=== PATIENT | male | born 1945 | race African-American/Black ===

== ENCOUNTER 2017-10-24 13:27 | Inpatient (IN) | payer MEDICARE, MEDICAID ==
[~2017-10-24] VITALS: Ht 193 cm; Wt 60.8 kg
[~2017-10-24 13:27] MED LIST: ACETAMINOPHEN-1 EAC1 ORAL; BACTRIM-DS1 EA PO; COLACE100 MG PO; FLOMAX0.4 MG PO; IBUPROFEN800 MG ORAL; LOPRESSOR50 MG PO; PROSCAR5 MG PO; PROTONIX40 MG PO; UNK MEDS; [UNRECOGNIZED DRUG - REMARK] PO; [UNRECOGNIZED DRUG - REMARK] PO
[2017-10-24 13:50] VITALS: BP 116/78
[2017-10-24] MEDS ORDERED: Sodium Chloride 500ML 500 ML IV ONE (14:00)
[2017-10-24] MEDS ORDERED: cefTRIAXone 1 GM in NS 55 ML IVPB ONE (14:00)
--- NOTE | 2017-10-24 14:21 | Emergency Room Report ---
History of Present Illness General Chief Complaint: General Complaint Source: Patient Present Illness HPI Patient presents with complaints of increased redness to both of his feet Along with pain to the right knee patient has a history of left-sided knee arthritis Patient reports the redness started today denies any fevers However he does feel weak and did have a fall yesterday Denies any focal pain is ankle or upper extremity Allergies: Coded Allergies: No Known Allergies (Unverified , 09/10/11) Patient History Past Medical History: see triage record Pertinent Family History: none Reviewed Nursing Documentation: PMH: Agreed; PSxH: Agreed Nursing Documentation-PMH Past Medical History: No History, Except For Hx Hypertension: Yes Hx Pacemaker: No Hx Asthma: No Hx COPD: No Hx Diabetes: No Hx Cancer: No Hx Gastrointestinal Problems: Yes - GERD Hx Dialysis: No History Of Psychiatric Problem: No Hx Neurological Problems: No Hx Cerebrovascular Accident: No Hx Seizures: No Review of Systems All Other Systems: negative except mentioned in HPI Physical Exam Vital Signs Date Time Temp Pulse Resp B/P (MAP) Pulse Ox O2 Delivery O2 Flow Rate FiO2 10/24/17 13:50 97.4 83 16 125/63 96 Room Air 97.3 Sp02 EP Interpretation: reviewed, normal General Appearance: no apparent distress Head: normocephalic, atraumatic Eyes: bilateral eye PERRL, bilateral eye EOMI ENT: hearing grossly normal, normal pharynx, TMs + canals normal, uvula midline Neck: full range of motion, supple, no meningismus, no bony tend Respiratory: lungs clear, normal breath sounds, no rhonchi, no respiratory distress, no retraction, no accessory muscle use Cardiovascular #1: normal peripheral pulses, regular rate, rhythm, no gallop, no JVD, no murmur Gastrointestinal: normal bowel sounds, non tender, soft, no mass, no organomegaly, non-distended, no guarding, no hernia, no pulsatile mass, no rebound Genitourinary: no CVA tenderness Musculoskeletal: other - Swelling and erythema to bilateral feet, right ankle also appears mildly edematous, no obvious open wounds Neurologic: oriented x3, responsive, heel emery buffer III-XII nml as tested, sensory intact Psychiatric: mood/affect normal Skin: other - As above with cellulitic changes both legs Lymphatic: normal inspection, no adenopathy Medical Decision Making Diagnostic Impression: Primary Impression: cellulilitis of feet Additional Impression: Leg swelling ER Course Given the patient's presentation and history patient is complex requiring blood work and imaging Patient's total CK is elevated showing signs of dehydration lactic acid was also elevated Patient provided with further hydration and antibiotics Infectious disease consultation made and patient admitted for further care Labs Test 10/24/17 07:52 10/24/17 15:34 10/24/17 17:00 10/25/17 07:50 Erythrocyte Sedimentation Rate 3 MM/HR (0-20) White Blood Count 4.6 K/UL (4.8-10.8) Red Blood Count 4.29 M/UL (4.70-6.10) Hemoglobin 13.2 G/DL (14.2-18.0) Hematocrit 39.7 % (42.0-52.0) Mean Corpuscular Volume 92 FL (80-99) Mean Corpuscular Hemoglobin 30.8 PG (27.0-31.0) Mean Corpuscular Hemoglobin Concent 33.3 G/DL (32.0-36.0) Red Cell Distribution Width 12.8 % (11.6-14.8) Platelet Count 294 K/UL (150-450) Mean Platelet Volume 5.4 FL (6.5-10.1) Neutrophils (%) (Auto) 60.1 % (45.0-75.0) Lymphocytes (%) (Auto) 26.1 % (20.0-45.0) Monocytes (%) (Auto) 8.7 % (1.0-10.0) Eosinophils (%) (Auto) 3.6 % (0.0-3.0) Basophils (%) (Auto) 1.5 % (0.0-2.0) Sodium Level 142 MMOL/L (136-145) Potassium Level 3.8 MMOL/L (3.5-5.1) Chloride Level 108 MMOL/L (98-107) Carbon Dioxide Level 24 MMOL/L (21-32) Anion Gap 10 mmol/L (5-15) Blood Urea Nitrogen 15 mg/dL (7-18) Creatinine 1.0 MG/DL (0.55-1.30) Estimat Glomerular Filtration Rate mL/min (>60) Glucose Level 65 MG/DL (74-106) Lactic Acid Level 2.90 mmol/L (0.66-2.22) 2.00 mmol/L (0.66-2.22) Calcium Level 9.3 MG/DL (8.5-10.1) Total Bilirubin 0.4 MG/DL (0.2-1.0) Aspartate Amino Transf (AST/SGOT) 38 U/L (15-37) Alanine Aminotransferase (ALT/SGPT) 56 U/L (12-78) Alkaline Phosphatase 88 U/L (46-116) Total Creatine Kinase 657 U/L (26-308) 584 U/L (26-308) Creatine Kinase MB 15.2 NG/ML (0.0-3.6) Creatine Kinase MB Relative Index 2.3 Troponin I 0.000 ng/mL (0.000-0.056) Pro-B-Type Natriuretic Peptide 103 pg/mL (0-125) Total Protein 8.2 G/DL (6.4-8.2) Albumin 3.7 G/DL (3.4-5.0) Globulin 4.5 g/dL Albumin/Globulin Ratio 0.8 (1.0-2.7) Test 10/25/17 07:52 White Blood Count 4.6 K/UL (4.8-10.8) Red Blood Count 4.58 M/UL (4.70-6.10) Hemoglobin 15.2 G/DL (14.2-18.0) Hematocrit 42.2 % (42.0-52.0) Mean Corpuscular Volume 92 FL (80-99) Mean Corpuscular Hemoglobin 33.1 PG (27.0-31.0) Mean Corpuscular Hemoglobin Concent 35.9 G/DL (32.0-36.0) Red Cell Distribution Width 12.4 % (11.6-14.8) Platelet Count 237 K/UL (150-450) Mean Platelet Volume 5.3 FL (6.5-10.1) Neutrophils (%) (Auto) 69.7 % (45.0-75.0) Lymphocytes (%) (Auto) 18.5 % (20.0-45.0) Monocytes (%) (Auto) 5.4 % (1.0-10.0) Eosinophils (%) (Auto) 4.8 % (0.0-3.0) Basophils (%) (Auto) 1.6 % (0.0-2.0) Sodium Level 140 MMOL/L (136-145) Potassium Level 4.3 MMOL/L (3.5-5.1) Chloride Level 104 MMOL/L (98-107) Carbon Dioxide Level 24 MMOL/L (21-32) Anion Gap 12 mmol/L (5-15) Blood Urea Nitrogen 8 mg/dL (7-18) Creatinine 0.7 MG/DL (0.55-1.30) Estimat Glomerular Filtration Rate mL/min (>60) Glucose Level 118 MG/DL (74-106) Uric Acid 3.3 MG/DL (2.6-7.2) Calcium Level 9.0 MG/DL (8.5-10.1) Troponin I 0.000 ng/mL (0.000-0.056) Pro-B-Type Natriuretic Peptide 192 pg/mL (0-125) Triglycerides Level 46 MG/DL (30-150) Cholesterol Level 146 MG/DL (< 200) LDL Cholesterol 79 mg/dL (<100) HDL Cholesterol 61 MG/DL (40-60) Cholesterol/HDL Ratio 2.4 (3.3-4.4) Rhythm Strip Diag. Results EP Interpretation: yes Rate: 77 Rhythm: NSR, no PVC's, no ectopy Chest X-Ray Diagnostic Results Chest X-Ray Diagnostic Results : Chest X-Ray Ordered: Yes # of Views/Limited/Complete: 1 View Indication: Chest Pain EP Interpretation: Yes Interpretation: no consolidation, no effusion, no pneumothorax, no acute cardiopulmonary disease Impression: No acute disease Electronically Signed by: Stacey So DO Other X-Ray Diagnostic Results Other X-Ray Diagnostic Results #1: X-Ray ordered: Right foot # of Views/Limited Vs Complete: 2 View Indication: Pain EP Interpretation: Yes Interpretation: no dislocation, no soft tissue swelling, no fractures Impression: No acute disease Electronically Signed by: Stacey So DO Other X-Ray Diagnostic Results #2: X-Ray ordered: Right ankle # of Views/Limited Vs Complete: 2 View Indication: Pain EP Interpretation: Yes Interpretation: no dislocation, no soft tissue swelling, no fractures Impression: No acute disease Electronically Signed by: Stacey So DO Other X-Ray Diagnostic Results #3: X-Ray ordered: Left foot # of Views/Limited Vs Complete: 2 View Indication: Pain EP Interpretation: Yes Interpretation: no dislocation, no soft tissue swelling, no fractures Impression: No acute disease Electronically Signed by: Stacey So DO Other X-Ray Diagnostic Results #4: X-Ray ordered: Left ankle # of Views/Limited Vs Complete: 2 View Indication: Pain EP Interpretation: Yes Interpretation: no dislocation, no soft tissue swelling, no fractures Impression: No acute disease Electronically Signed by: Stacey So DO Last Vital Signs Date Time Temp Pulse Resp B/P (MAP) Pulse Ox O2 Delivery O2 Flow Rate FiO2 10/24/17 13:50 97.4 83 16 125/63 96 Room Air 97.3 Status: improved Disposition: ADMITTED INPATIENT Condition: Serious Stacey So DO October 24, 2017 14:21
[2017-10-24 16:15] LABS: BASOPHILS % (AUTO) 1.5 % (0.0-2.0); EOSINOPHILS % (AUTO) 3.6 % (0.0-3.0); HEMATOCRIT 39.7 % (42.0-52.0); HEMOGLOBIN 13.2 G/DL (14.2-18.0); LYMPHOCYTES % (AUTO) 26.1 % (20.0-45.0); MEAN CORPUSCULAR VOLUME 92 FL (80-99); MONOCYTES % (AUTO) 8.7 % (1.0-10.0); NEUTROPHILS % (AUTO) 60.1 % (45.0-75.0); PLATELET COUNT 294 K/UL (150-450); RED BLOOD COUNT 4.29 M/UL (4.70-6.10); RED CELL DISTRIBUTION WIDTH 12.8 % (11.6-14.8); WHITE BLOOD COUNT 4.6 K/UL (4.8-10.8)
[2017-10-24 16:28] LABS: ANION GAP 10 mmol/L (5-15); BLOOD UREA NITROGEN 15 mg/dL (7-18); CALCIUM 9.3 MG/DL (8.5-10.1); CARBON DIOXIDE 24 MMOL/L (21-32); CHLORIDE 108 MMOL/L (98-107); POTASSIUM 3.8 MMOL/L (3.5-5.1); SODIUM 142 MMOL/L (136-145)
--- NOTE | 2017-10-24 16:28 | Cardiac Electrophysiology PN ---
Subjective Subjective Pt seen in ER. Cardiology consult dictated and DW Dr Mora [id number] Objective Last 24 Hour Vital Signs Date Time Temp Pulse Resp B/P (MAP) Pulse Ox O2 Delivery O2 Flow Rate FiO2 10/24/17 13:50 97.4 83 16 125/63 96 Room Air 97.3 Laboratory Tests Test 10/24/17 15:34 White Blood Count 4.6 K/UL (4.8-10.8) L Red Blood Count 4.29 M/UL (4.70-6.10) L Hemoglobin 13.2 G/DL (14.2-18.0) L Hematocrit 39.7 % (42.0-52.0) L Mean Corpuscular Volume 92 FL (80-99) Mean Corpuscular Hemoglobin 30.8 PG (27.0-31.0) Mean Corpuscular Hemoglobin Concent 33.3 G/DL (32.0-36.0) Red Cell Distribution Width 12.8 % (11.6-14.8) Platelet Count 294 K/UL (150-450) Mean Platelet Volume 5.4 FL (6.5-10.1) L Neutrophils (%) (Auto) 60.1 % (45.0-75.0) Lymphocytes (%) (Auto) 26.1 % (20.0-45.0) Monocytes (%) (Auto) 8.7 % (1.0-10.0) Eosinophils (%) (Auto) 3.6 % (0.0-3.0) H Basophils (%) (Auto) 1.5 % (0.0-2.0) Sodium Level Pending Potassium Level Pending Chloride Level Pending Carbon Dioxide Level Pending Blood Urea Nitrogen Pending Creatinine Pending Estimat Glomerular Filtration Rate Pending Glucose Level Pending Lactic Acid Level Pending Calcium Level Pending Total Bilirubin Pending Aspartate Amino Transf (AST/SGOT) Pending Alanine Aminotransferase (ALT/SGPT) Pending Alkaline Phosphatase Pending Total Creatine Kinase Pending Creatine Kinase MB Pending Troponin I Pending Pro-B-Type Natriuretic Peptide Pending Total Protein Pending Albumin Pending Globulin Pending Morteza Warner MD October 24, 2017 16:28
[2017-10-24 16:45] LABS: ALANINE AMINOTRANSFERASE 56 U/L (12-78); ALBUMIN 3.7 G/DL (3.4-5.0); ALBUMIN/GLOBULIN RATIO 0.8 (1.0-2.7); ALKALINE PHOSPHATASE 88 U/L (46-116); ASPARTATE AMINO TRANSFERASE 38 U/L (15-37); BILIRUBIN,TOTAL 0.4 MG/DL (0.2-1.0); CKMB 15.2 NG/ML (0.0-3.6); CREATINE KINASE 657 U/L (26-308)
--- NOTE | 2017-10-24 17:34 | Infectious Diseases Prog Note ---
Assessment/Plan Problems: (1) Cellulitis and abscess of lower extremity Assessment & Plan: will start vancomycin and cefazolin empirically , pending blood culture, keep legs elevated all the time when in bed (2) Leg swelling Assessment & Plan: rule out DVT, will order venous doppler and start antibiotics Subjective Allergies: Coded Allergies: No Known Allergies (Unverified , 09/10/11) Objective Vital Signs Last 24 Hour Vital Signs Date Time Temp Pulse Resp B/P (MAP) Pulse Ox O2 Delivery O2 Flow Rate FiO2 10/24/17 13:50 97.4 83 16 125/63 96 Room Air 97.3 10/24/17 13:50 98.4 84 14 116/78 98 Room Air 98.4 Height (Feet): 6 Height (Inches): 4.00 Weight (Pounds): 170 Laboratory Tests Test 10/24/17 15:34 10/24/17 17:00 White Blood Count 4.6 K/UL (4.8-10.8) L Red Blood Count 4.29 M/UL (4.70-6.10) L Hemoglobin 13.2 G/DL (14.2-18.0) L Hematocrit 39.7 % (42.0-52.0) L Mean Corpuscular Volume 92 FL (80-99) Mean Corpuscular Hemoglobin 30.8 PG (27.0-31.0) Mean Corpuscular Hemoglobin Concent 33.3 G/DL (32.0-36.0) Red Cell Distribution Width 12.8 % (11.6-14.8) Platelet Count 294 K/UL (150-450) Mean Platelet Volume 5.4 FL (6.5-10.1) L Neutrophils (%) (Auto) 60.1 % (45.0-75.0) Lymphocytes (%) (Auto) 26.1 % (20.0-45.0) Monocytes (%) (Auto) 8.7 % (1.0-10.0) Eosinophils (%) (Auto) 3.6 % (0.0-3.0) H Basophils (%) (Auto) 1.5 % (0.0-2.0) Sodium Level 142 MMOL/L (136-145) Potassium Level 3.8 MMOL/L (3.5-5.1) Chloride Level 108 MMOL/L (98-107) H Carbon Dioxide Level 24 MMOL/L (21-32) Anion Gap 10 mmol/L (5-15) Blood Urea Nitrogen 15 mg/dL (7-18) Creatinine 1.0 MG/DL (0.55-1.30) Estimat Glomerular Filtration Rate mL/min (>60) Glucose Level 65 MG/DL (74-106) L Lactic Acid Level 2.90 mmol/L (0.66-2.22) H Pending Calcium Level 9.3 MG/DL (8.5-10.1) Total Bilirubin 0.4 MG/DL (0.2-1.0) Aspartate Amino Transf (AST/SGOT) 38 U/L (15-37) H Alanine Aminotransferase (ALT/SGPT) 56 U/L (12-78) Alkaline Phosphatase 88 U/L (46-116) Total Creatine Kinase 657 U/L (26-308) H Creatine Kinase MB 15.2 NG/ML (0.0-3.6) H Creatine Kinase MB Relative Index 2.3 Troponin I 0.000 ng/mL (0.000-0.056) Pro-B-Type Natriuretic Peptide 103 pg/mL (0-125) Total Protein 8.2 G/DL (6.4-8.2) Albumin 3.7 G/DL (3.4-5.0) Globulin 4.5 g/dL Albumin/Globulin Ratio 0.8 (1.0-2.7) L Current Medications Medications (Trade) Dose Ordered Sig/Nicole Route PRN Reason Start Time Stop Time Status Last Admin Dose Admin Acetaminophen (Tylenol) 650 mg Q4H PRN ORAL Mild Pain (Pain Scale 1-3) 10/24/17 17:15 11/23/17 17:14 Dextrose (Dextrose 50%) 25 ml STAT PRN IV Hypoglycemia 10/24/17 17:15 11/23/17 17:14 Dextrose (Dextrose 50%) 50 ml STAT PRN IV Hypoglycemia 10/24/17 17:15 11/23/17 17:14 Diphenhydramine HCl (Benadryl) 25 mg Q6H PRN ORAL Itching/Pruritis 10/24/17 17:15 11/23/17 17:14 Docusate Sodium (Colace) 100 mg EVERY 12 HOURS ORAL 10/24/17 21:00 11/23/17 20:59 Famotidine (Pepcid) 40 mg DAILY ORAL 10/25/17 09:00 11/24/17 08:59 Heparin Sodium (Porcine) (Heparin 5000 units/ml) 5,000 units EVERY 8 HOURS SUBQ 10/24/17 22:00 11/23/17 21:59 Sodium Chloride 1,000 ml @ 75 mls/hr [id number] IV 10/24/17 17:30 11/23/17 17:29 Tamsulosin HCl (Flomax) 0.4 mg BEDTIME ORAL 10/24/17 21:00 11/23/17 20:59 Ayaz Mora M.D. October 24, 2017 17:34
--- NOTE | 2017-10-24 17:44 | Diagnostic Imaging Report ---
Indication: Dyspnea Technique: XRAY Chest 1v Comparison: 08/24/2012 Findings: Heart size and mediastinal contours are within normal limits and stable compared to the prior exam. Lungs are hyperinflated. There is no focal airspace consolidation, pleural effusion or pneumothorax. There is an unchanged calcified granuloma in the left lung and calcified mediastinal lymph node. No acute osseous abnormality is seen. Impression: Unchanged findings suggestive of COPD. No focal airspace consolidation, pleural effusion or pneumothorax. Evidence of prior granulomatous disease.
--- NOTE | 2017-10-24 17:48 | Diagnostic Imaging Report ---
Indication: Pain Technique: XRAY Ankle 2v -right Comparison: None Findings: There is bimalleolar soft tissue swelling. There is no definite/displaced acute fracture. Ankle mortise is intact on these nonstress views. There is a well-circumscribed ossific density projecting just inferior to the tip of the fibula which may represent sequela of remote trauma or an accessory ossicle. No radiopaque foreign body seen. Imaged hindfoot grossly unremarkable. There is a likely small os perineum. Impression: Bimalleolar soft tissue swelling. No evidence of acute fracture. Ankle mortise intact.
--- NOTE | 2017-10-24 17:51 | Diagnostic Imaging Report ---
Indication: Pain Technique: XRAY Foot 2v R Comparison: No prior right foot radiographs available for comparison. Findings: There is bimalleolar soft tissue swelling. There is no evidence of acute fracture. No focal osteopenia, periostitis or bony erosion. Lisfranc alignment of the foot is preserved. There are probable hammertoe deformities of the second through fifth digits. No radiopaque foreign body seen. Impression: Mild bimalleolar soft tissue swelling. No acute fracture or dislocation.
--- NOTE | 2017-10-24 17:52 | Diagnostic Imaging Report ---
Indication: Pain Technique: XRAY Foot 2v L Comparison: None Findings: There is no evidence of acute fracture or dislocation. There are hammertoe deformities of the second through fifth digits. There is mild soft tissue swelling about the ankle. No radiopaque foreign body identified. Impression: Mild soft tissue swelling about the medial ankle. No evidence of acute fracture or dislocation.
--- NOTE | 2017-10-24 17:54 | Diagnostic Imaging Report ---
Indication: Pain Technique: XRAY Ankle 2v L Comparison: None Findings: There is mild soft tissue swelling about the medial malleolus. There is no evidence of acute fracture. Ankle mortise is intact on this nonstress view. Imaged hindfoot grossly unremarkable. No radiopaque foreign body seen. No plain film evidence to suggest acute osteomyelitis. Impression: Mild soft tissue swelling about the medial malleolus. No evidence of acute fracture or dislocation.
[2017-10-24 18:51] VITALS: BP 160/77
[2017-10-24] MEDS ORDERED: Vancomycin 1250mg/D5W 250ml IVPB ONE (20:00)
[2017-10-24] MEDS: Tamsulosin 0.4mg cap ORAL SCH (21:25)
[2017-10-24] MEDS: Docusate 100mg cap ORAL SCH (21:25)
[2017-10-24] MEDS: Heparin 5000 units/ml inj SUBQ SCH (21:39)
--- NOTE | 2017-10-24 23:00 | Consultation ---
DATE OF CONSULTATION: 10/24/2017 CARDIOLOGY CONSULTATION CONSULTING PHYSICIAN: Morteza Warner M.D. REFERRING PHYSICIAN: Haroon Ceja M.D. REASON FOR CONSULTATION: Hypertension and lower extremity edema. HISTORY OF PRESENT ILLNESS: The patient is a 72-year-old gentleman with no major past medical history except for hypertension, history of gastroesophageal reflux disease, as well as history of alcohol and tobacco use more than 20 years ago, but he stopped of them. The patient came to the emergency room with the bilateral swelling in his feet, right more than left, as well as redness. The patient also has history of arthritis. The patient denies any chest pain, palpitation, or shortness of breath and he feels weak and did have fall yesterday. The patient was admitted and a Cardiology consultation was obtained for further evaluation and management. In the emergency room, blood pressure was 125/62 with a pulse of 82 and respirations of 18. REVIEW OF SYSTEMS: Review of Systems was performed and was negative other than what was mentioned in the history of present illness. PAST MEDICAL HISTORY: 1. Hypertension. 2. Rheumatoid arthritis. FAMILY HISTORY: Noncontributory. SOCIAL HISTORY: He has history of smoking and drinking, but that was more than 20 years ago. PHYSICAL EXAMINATION: VITAL SIGNS: Blood pressure is 125/62, pulse 83, respirations 18, and temperature 97.3. HEENT: Head and neck showed no JVD. LUNGS: Clear. CARDIOVASCULAR: Regular S1 and S2 with no gallop or murmur. ABDOMEN: Soft. EXTREMITIES: Bilateral pitting edema with the right much worse than the left as well as cellulitis and erythema of right leg. LABORATORY AND DIAGNOSTIC DATA: EKG showed normal sinus rhythm with right atrial enlargement, borderline EKG. Labs, white count of 4.6, hemoglobin 13.2, hematocrit 39.7, and platelet count 294. The rest of the chemistry is pending. ASSESSMENT AND PLAN: 1. Bilateral lower extremity edema, mostly on the right. We will get lower extremity Doppler and get an echocardiogram to evaluate for ejection fraction and wall motion abnormality. In the meantime, we will put the patient on Lasix. 2. History of arthritis. 3. History of hypertension. Blood pressure currently stable. Keep the patient off antihypertensives. We will just add p.r.n. clonidine. 4. History of cellulitis, started on ceftriaxone. Thank you very much, Dr. Ceja, for allowing me to participate in the care of this patient. Please do not hesitate to contact me for any questions regarding my evaluation. Morteza Warner M.D. DR: Betty JOB#: [id number] CC:
[2017-10-24] MEDS: ceFAZolin sod 1 GM in D5W 55 ML IVPB SCH (23:17)
[2017-10-25] VITALS: BP 136/71
--- NOTE | 2017-10-25 01:00 | Consultation ---
DATE OF CONSULTATION: 10/24/2017 INFECTIOUS DISEASES CONSULTATION CONSULTING PHYSICIAN: Ayaz Mora M.D. REQUESTING PHYSICIAN: Haroon Ceja M.D. REASON FOR CONSULTATION: Bilateral lower extremity cellulitis and recommendation for antibiotics treatment HISTORY OF PRESENT ILLNESS: The patient is a 72-year-old male with past medical history of hypertension and GERD, presented to [facility] with chief complaint of redness and swelling of both feet and lower extremities. He also has pain on the right knee, but no significant swelling. The patient had history of left side knee arthritis. His redness started over the last couple of days, does not recall any wound, injury or fall or trauma to his legs and he never had any previous cellulitis. He denied any focal pain or numbness. The patient had temperature of 97.4 in the emergency room. White count of 4.6. He was started on vancomycin and ceftriaxone empirically and Infectious Diseases consultation was requested for antibiotics treatment and further management. As of note, the patient had an significant onychomycosis on both feet, which he never treated before in the past. REVIEW OF SYSTEMS: A 14-point of system reviewed were all negative apart from the one I mentioned above in my History and Physical. PAST MEDICAL HISTORY: Significant for hypertension and GERD. PAST SURGICAL HISTORY: Negative. MEDICATIONS: He received vancomycin and ceftriaxone in the emergency room. For the rest of his medications, please refer to [facility]. ALLERGIES: No known drug allergy. SOCIAL HISTORY: The patient lives at home with family. No recent drugs, tobacco, or alcohol. PHYSICAL EXAMINATION: VITAL SIGNS: Temperature 97.4 degrees, pulse 83, respirations 16, blood pressure 125/63, saturation 96% on room air. GENERAL: An elderly male, lying in bed, awake, alert, oriented, not in distress. HEENT: Normocephalic and atraumatic. Pupils reactive to light equally. Moist oral mucosa. No exudate. NECK: Supple. No lymphadenopathy. CARDIOVASCULAR: Regular rate and rhythm. No murmur or gallop. LUNGS: Clear bilaterally. No wheezing. No rhonchi. Normal respiratory effort. ABDOMEN: Soft, nontender, nondistended. Normal bowel sounds. No hepatosplenomegaly. No ascites. EXTREMITIES: He had edema in the feet mainly right worse than left with redness and erythema, mainly on the right lower extremity and warmth. No fluctuation. Significant onychomycosis in both feet. LABORATORY AND DIAGNOSTIC DATA: Labs showed white count of 4.6, hemoglobin of 13.2, platelet count of 294. BUN of 15, creatinine of 1. AST of 38, ALT of 56. ASSESSMENT AND RECOMMENDATION: 1. Cellulitis and abscess of the lower extremity. We will start vancomycin and cefazolin empiric treatment, pending blood culture to rule out bacteremia. We will check his sedimentation rate. Keep leg elevated all the time when in bed. 2. Leg swelling, rule out deep venous thrombosis. We will order a venous Doppler and start antibiotics empiric coverage. 3. Hypertension. Continue blood pressure medicine. Cardiology is consulted. Thank you for the consult. Infectious Diseases will continue to follow. Ayaz Mora M.D. DR: Davon JOB#: [id number] CC:
--- NOTE | 2017-10-25 02:15 | History and Physical Report ---
DATE OF ADMISSION: 10/24/2017 REASON FOR ADMISSION: 1. Bilateral lower extremity, feet and ankle cellulitis. 2. Arthritis. HISTORY OF PRESENT ILLNESS: The patient is a 72-year-old gentleman, who says he has been doing relatively well at home and only taking vitamins. He denied taking any antihypertensive medications or diabetic medications and been feeling well until approximately 2 or 3 days ago. His brother noted that his feet have become more swollen over the last two days. The patient says that his ankles down to his feet have become more swollen and red and warm and tender to touch. As such, he presented to emergency room for further evaluation and care. The patient walks around barefoot. He does have poor podiatry care. His nails on his feet do look like they have fungus, multiple cracked area lesions of skin noted. Feet were warm. The patient says they are still hurting and as such he is being admitted for aggressive IV fluid and antibiotic management. ALLERGIES: No known drug allergies. PAST MEDICAL HISTORY: 1. Left knee arthritis. 2. Hypertension. PAST SURGICAL HISTORY: Noncontributory. HOME MEDICATIONS: Multivitamin. FAMILY HISTORY: Positive for diabetes and hypertension. REVIEW OF SYSTEMS: NEUROLOGIC: The patient denies headache, change in vision, syncope or presyncopal episodes. CARDIOVASCULAR: No current chest pain, palpitations, or angina. PULMONARY: No difficulty breathing, productive cough, or sputum. GASTROINTESTINAL/GENITOURINARY: No changes in urinary or bowel habits. No nausea, vomiting, or diarrhea. ENDOCRINOLOGY: No night sweats, fevers or chills. MUSCULOSKELETAL: The patient complaining of bilateral feet pain. PHYSICAL EXAMINATION: GENERAL: The patient is awake, alert, in no apparent distress. VITAL SIGNS: Blood pressure 112/63, respiratory rate 16, temperature 98.4 degrees, and 98% oxygen saturation on room air. HEENT: Extraocular muscles intact. No lymphadenopathy noted. CARDIOVASCULAR: S1 and S2. No rubs or gallops. PULMONARY: Clear to auscultation bilaterally. No rales, rhonchi, or wheezes. ABDOMINAL: Nondistended and nontender. EXTREMITIES: Bilateral ankle edema, warm to touch and erythema noted. LABORATORY DATA: Labs dated 10/24/2017, sodium 142, potassium 3.8, chloride 108, bicarbonate 24, BUN 15, and creatinine 1. AST 38 and ALT 56. Troponin 0. Albumin 3.7. Total creatine kinase 657. Hemoglobin 13.2, white cell count 4.6, and platelet count 294. ASSESSMENT AND PLAN: 1. Bilateral lower extremity cellulitis. At this time, Infectious Disease, Dr. Mora has been called. Antibiotic management per his discretion. We will also check a uric acid level to ensure no underlying component of acute gout flare. Continue aggressive hydration. 2. Hypertension. The patient had been on Lopressor, but says he has not been taking it. Currently, blood pressure is stable. We will monitor and if needed reinitiate Lopressor therapy. 3. DVT prophylaxis will be initiated with heparin subcutaneous 5000 units q.8 h. 4. GERD. The patient to continue famotidine 40 mg daily. 5. Disposition. Health maintenance. Dr. Warner is also following. Appreciate his assistance. We will continue to follow the patient and once lower extremity cellulitis has resolved, we will discharge the patient on a timely manner hopefully within two to three days. Adrián Wise MD DR: ELLEN JOB#: [id number] CC:
[2017-10-25 04:00] VITALS: BP 134/67
[2017-10-25] MEDS: ceFAZolin sod 1 GM in D5W 55 ML IVPB SCH ×3 (05:36→21:52)
[2017-10-25] MEDS: Heparin 5000 units/ml inj SUBQ SCH ×3 (05:36→21:52)
--- NOTE | 2017-10-25 07:39 | Nephrology Progress Note ---
Assessment/Plan Assessment/Plan 1. LE cellulitis- on Abx, appreciate ID assistance - ankle edema much improved - anticipate DC Friday on po antibiotics 2. HTN- stable, off Lopressor - monitor - appreciate cardiology input 3. DVT prophylaxsis- heparing sub q 5000 units q 8hrs Subjective Date patient seen: October 25, 2017 Time patient seen: 07:33 ROS Limited/Unobtainable: No Constitutional: Reports: other - LE swelling Allergies: Coded Allergies: No Known Allergies (Unverified , 09/10/11) All Systems: reviewed and negative except above Subjective Patient feeling much better. LE ankle swelling resolving and patient feels much better. LE pain resolved Objective Last 24 Hour Vital Signs Date Time Temp Pulse Resp B/P (MAP) Pulse Ox O2 Delivery O2 Flow Rate FiO2 10/25/17 04:00 97.9 74 20 134/67 100 Room Air 97.9 10/25/17 03:55 57 10/25/17 00:00 97.4 82 20 136/71 100 Room Air 97.4 10/24/17 23:41 58 10/24/17 20:02 85 10/24/17 19:00 98.2 88 12 128/66 99 Room Air 10/24/17 18:51 97.5 73 15 160/77 100 Room Air 97.5 10/24/17 13:50 97.4 83 16 125/63 96 Room Air 97.3 10/24/17 13:50 98.4 84 14 116/78 98 Room Air 98.4 Intake and Output 10/24/17 10/25/17 19:00 07:00 Intake Total 55 ml 938.607 ml Balance 55 ml 938.607 ml Intake Oral 0 ml IV Total 55 ml 938.607 ml # Voids 4 Laboratory Tests 10/24/17 15:34: White Blood Count 4.6L, Red Blood Count 4.29L, Hemoglobin 13.2L, Hematocrit 39.7L, Mean Corpuscular Volume 92, Mean Corpuscular Hemoglobin 30.8, Mean Corpuscular Hemoglobin Concent 33.3, Red Cell Distribution Width 12.8, Platelet Count 294, Mean Platelet Volume 5.4L, Neutrophils (%) (Auto) 60.1, Lymphocytes ( %) (Auto) 26.1, Monocytes (%) (Auto) 8.7, Eosinophils (%) (Auto) 3.6H, Basophils (%) (Auto) 1.5, Erythrocyte Sedimentation Rate [Pending], Sodium Level 142, Potassium Level 3.8, Chloride Level 108H, Carbon Dioxide Level 24, Anion Gap 10, Blood Urea Nitrogen 15, Creatinine 1.0, Estimat Glomerular Filtration Rate , Glucose Level 65L, Lactic Acid Level 2.90H, Calcium Level 9.3 , Total Bilirubin 0.4, Aspartate Amino Transf (AST/SGOT) 38H, Alanine Aminotransferase (ALT/SGPT) 56, Alkaline Phosphatase 88, Total Creatine Kinase 657H, Creatine Kinase MB 15.2H, Creatine Kinase MB Relative Index 2.3, Troponin I 0.000, Pro-B-Type Natriuretic Peptide 103, Total Protein 8.2, Albumin 3.7, Globulin 4.5, Albumin/Globulin Ratio 0.8L 10/24/17 17:00: Lactic Acid Level 2.00 Height (Feet): 6 Height (Inches): 4.00 Weight (Pounds): 170 General Appearance: WD/WN, no apparent distress, alert EENT: PERRL/EOMI, normal ENT inspection Neck: non-tender, normal alignment Cardiovascular: normal rate, regular rhythm Respiratory/Chest: chest wall non-tender, lungs clear, normal breath sounds Abdomen: normal bowel sounds, non tender, soft Edema: 1+ Pedal (L), 1+ Pedal (R) Adrián Wise M.D. October 25, 2017 07:39
[2017-10-25 08:00] VITALS: BP 148/69
[2017-10-25] MEDS: Docusate 100mg cap ORAL SCH ×2 (08:21→20:40)
[2017-10-25] MEDS: Vancomycin 750mg/NS 250ml IVPB SCH ×2 (08:21→19:59)
[2017-10-25 08:33] LABS: BASOPHILS % (AUTO) 1.6 % (0.0-2.0); EOSINOPHILS % (AUTO) 4.8 % (0.0-3.0); HEMATOCRIT 42.2 % (42.0-52.0); HEMOGLOBIN 15.2 G/DL (14.2-18.0); LYMPHOCYTES % (AUTO) 18.5 % (20.0-45.0); MEAN CORPUSCULAR VOLUME 92 FL (80-99); MONOCYTES % (AUTO) 5.4 % (1.0-10.0); NEUTROPHILS % (AUTO) 69.7 % (45.0-75.0); PLATELET COUNT 237 K/UL (150-450); RED BLOOD COUNT 4.58 M/UL (4.70-6.10); RED CELL DISTRIBUTION WIDTH 12.4 % (11.6-14.8); WHITE BLOOD COUNT 4.6 K/UL (4.8-10.8)
[2017-10-25 09:23] LABS: ANION GAP 12 mmol/L (5-15); BLOOD UREA NITROGEN 8 mg/dL (7-18); CARBON DIOXIDE 24 MMOL/L (21-32); CHLORIDE 104 MMOL/L (98-107); CHOLESTEROL 146 MG/DL (< 200); CREATININE 0.7 MG/DL (0.55-1.30); HDL CHOLESTEROL 61 MG/DL (40-60); POTASSIUM 4.3 MMOL/L (3.5-5.1); SODIUM 140 MMOL/L (136-145); TRIGLYCERIDES 46 MG/DL (30-150)
[2017-10-25 09:46] LABS: CREATINE KINASE 584 U/L (26-308)
[2017-10-25 12:00] VITALS: BP 156/71
--- NOTE | 2017-10-25 12:13 | Infectious Diseases Prog Note ---
Assessment/Plan Problems: (1) Cellulitis and abscess of lower extremity Assessment & Plan: continue vancomycin and cefazolin empirically , pending blood culture, keep legs elevated all the time when in bed (2) Leg swelling Assessment & Plan: rule out DVT, await venous doppler and continue antibiotics Subjective Constitutional: Reports: no symptoms HEENT: Reports: no symptoms Respiratory: Reports: no symptoms Breasts: Reports: no symptoms Cardiovascular: Reports: no symptoms Gastrointestinal/Abdominal: Reports: no symptoms Genitourinary: Reports: no symptoms Neurologic: Reports: no symptoms Psychiatric: Reports: no symptoms Skin: Reports: other - redness and warm on the feets Endocrine: Reports: no symptoms Hematologic: Reports: no symptoms Musculoskeletal: Reports: swelling Allergies: Coded Allergies: No Known Allergies (Unverified , 09/10/11) Objective Vital Signs Last 24 Hour Vital Signs Date Time Temp Pulse Resp B/P (MAP) Pulse Ox O2 Delivery O2 Flow Rate FiO2 10/25/17 08:00 101 10/25/17 08:00 97.0 97 18 148/69 97 Room Air 97.0 10/25/17 04:00 97.9 74 20 134/67 100 Room Air 97.9 10/25/17 03:55 57 10/25/17 00:00 97.4 82 20 136/71 100 Room Air 97.4 10/24/17 23:41 58 10/24/17 20:02 85 10/24/17 19:00 98.2 88 12 128/66 99 Room Air 10/24/17 18:51 97.5 73 15 160/77 100 Room Air 97.5 10/24/17 13:50 97.4 83 16 125/63 96 Room Air 97.3 10/24/17 13:50 98.4 84 14 116/78 98 Room Air 98.4 Height (Feet): 6 Height (Inches): 4.00 Weight (Pounds): 170 General Appearance: WD/WN, no acute distress HEENT: normocephalic, atraumatic, anicteric, mucous membranes moist, PERRL Respiratory/Chest: chest wall non-tender, lungs clear, normal breath sounds, no respiratory distress, no accessory muscle use Cardiovascular: normal peripheral pulses, normal rate, regular rhythm, no gallop/murmur, no JVD Abdomen: normal bowel sounds, soft, non tender, no organomegaly, non distended , no mass, no scars Extremities: no cyanosis, no clubbing Skin: no rash, no lesions, other - red and swallen on the feets Neurologic/Psychiatric: alert, oriented x 3, responsive Laboratory Tests Test 10/24/17 15:34 10/24/17 17:00 10/25/17 07:50 10/25/17 07:52 White Blood Count 4.6 K/UL (4.8-10.8) L 4.6 K/UL (4.8-10.8) L Red Blood Count 4.29 M/UL (4.70-6.10) L 4.58 M/UL (4.70-6.10) L Hemoglobin 13.2 G/DL (14.2-18.0) L 15.2 G/DL (14.2-18.0) Hematocrit 39.7 % (42.0-52.0) L 42.2 % (42.0-52.0) Mean Corpuscular Volume 92 FL (80-99) 92 FL (80-99) Mean Corpuscular Hemoglobin 30.8 PG (27.0-31.0) 33.1 PG (27.0-31.0) H Mean Corpuscular Hemoglobin Concent 33.3 G/DL (32.0-36.0) 35.9 G/DL (32.0-36.0) Red Cell Distribution Width 12.8 % (11.6-14.8) 12.4 % (11.6-14.8) Platelet Count 294 K/UL (150-450) 237 K/UL (150-450) Mean Platelet Volume 5.4 FL (6.5-10.1) L 5.3 FL (6.5-10.1) L Neutrophils (%) (Auto) 60.1 % (45.0-75.0) 69.7 % (45.0-75.0) Lymphocytes (%) (Auto) 26.1 % (20.0-45.0) 18.5 % (20.0-45.0) L Monocytes (%) (Auto) 8.7 % (1.0-10.0) 5.4 % (1.0-10.0) Eosinophils (%) (Auto) 3.6 % (0.0-3.0) H 4.8 % (0.0-3.0) H Basophils (%) (Auto) 1.5 % (0.0-2.0) 1.6 % (0.0-2.0) Sodium Level 142 MMOL/L (136-145) 140 MMOL/L (136-145) Potassium Level 3.8 MMOL/L (3.5-5.1) 4.3 MMOL/L (3.5-5.1) Chloride Level 108 MMOL/L (98-107) H 104 MMOL/L (98-107) Carbon Dioxide Level 24 MMOL/L (21-32) 24 MMOL/L (21-32) Anion Gap 10 mmol/L (5-15) 12 mmol/L (5-15) Blood Urea Nitrogen 15 mg/dL (7-18) 8 mg/dL (7-18) Creatinine 1.0 MG/DL (0.55-1.30) 0.7 MG/DL (0.55-1.30) Estimat Glomerular Filtration Rate mL/min (>60) mL/min (>60) Glucose Level 65 MG/DL (74-106) L 118 MG/DL (74-106) H Lactic Acid Level 2.90 mmol/L (0.66-2.22) H 2.00 mmol/L (0.66-2.22) Calcium Level 9.3 MG/DL (8.5-10.1) 9.0 MG/DL (8.5-10.1) Total Bilirubin 0.4 MG/DL (0.2-1.0) Aspartate Amino Transf (AST/SGOT) 38 U/L (15-37) H Alanine Aminotransferase (ALT/SGPT) 56 U/L (12-78) Alkaline Phosphatase 88 U/L (46-116) Total Creatine Kinase 657 U/L (26-308) H 584 U/L (26-308) H Creatine Kinase MB 15.2 NG/ML (0.0-3.6) H Creatine Kinase MB Relative Index 2.3 Troponin I 0.000 ng/mL (0.000-0.056) 0.000 ng/mL (0.000-0.056) Pro-B-Type Natriuretic Peptide 103 pg/mL (0-125) 192 pg/mL (0-125) H Total Protein 8.2 G/DL (6.4-8.2) Albumin 3.7 G/DL (3.4-5.0) Globulin 4.5 g/dL Albumin/Globulin Ratio 0.8 (1.0-2.7) L Uric Acid 3.3 MG/DL (2.6-7.2) Triglycerides Level 46 MG/DL (30-150) Cholesterol Level 146 MG/DL (< 200) LDL Cholesterol 79 mg/dL (<100) HDL Cholesterol 61 MG/DL (40-60) H Cholesterol/HDL Ratio 2.4 (3.3-4.4) L Current Medications Medications (Trade) Dose Ordered Sig/Nicole Route PRN Reason Start Time Stop Time Status Last Admin Dose Admin Acetaminophen (Tylenol) 650 mg Q4H PRN ORAL Mild Pain (Pain Scale 1-3) 10/24/17 17:15 11/23/17 17:14 Cefazolin Sodium 1 gm/Dextrose 55 ml @ 110 mls/hr Q8HR IVPB 10/24/17 22:00 10/31/17 21:59 10/25/17 05:36 Dextrose (Dextrose 50%) 25 ml STAT PRN IV Hypoglycemia 10/24/17 17:15 11/23/17 17:14 Dextrose (Dextrose 50%) 50 ml STAT PRN IV Hypoglycemia 10/24/17 17:15 11/23/17 17:14 Diphenhydramine HCl (Benadryl) 25 mg Q6H PRN ORAL Itching/Pruritis 10/24/17 17:15 11/23/17 17:14 Docusate Sodium (Colace) 100 mg EVERY 12 HOURS ORAL 10/24/17 21:00 11/23/17 20:59 10/25/17 08:21 Famotidine (Pepcid) 40 mg DAILY ORAL 10/25/17 09:00 11/24/17 08:59 10/25/17 08:21 Heparin Sodium (Porcine) (Heparin 5000 units/ml) 5,000 units EVERY 8 HOURS SUBQ 10/24/17 22:00 11/23/17 21:59 10/25/17 05:36 Sodium Chloride 1,000 ml @ 75 mls/hr [id number] IV 10/24/17 17:30 11/23/17 17:29 10/25/17 06:48 Tamsulosin HCl (Flomax) 0.4 mg BEDTIME ORAL 10/24/17 21:00 11/23/17 20:59 10/24/17 21:25 Vancomycin HCl (Vanco rx to dose) 1 ea DAILY PRN MISC Per rx protocol 10/24/17 17:30 11/23/17 17:29 Vancomycin/Sodium Chloride 250 ml @ 166.667 mls/hr Q12HR@0800,2000 IVPB 10/25/17 08:00 10/30/17 07:59 10/25/17 08:21 Ayaz Mora M.D. October 25, 2017 12:13
[2017-10-25 16:00] VITALS: BP 145/93
--- NOTE | 2017-10-25 16:18 | Cardiac Electrophysiology PN ---
Assessment/Plan Assessment/Plan 1. Bilateral lower extremity edema, mostly on the right. Echo EF 55%.No DVT. On Lasix 40 iv daily 2. History of arthritis. 3. History of hypertension. On Lasix and p.r.n. clonidine. 4. History of cellulitis, started on ceftriaxone. IMAN rN Subjective Subjective Feeling better. On Tele. Objective Last 24 Hour Vital Signs Date Time Temp Pulse Resp B/P (MAP) Pulse Ox O2 Delivery O2 Flow Rate FiO2 10/25/17 16:00 97.2 105 18 145/93 98 Room Air 97.2 10/25/17 12:00 80 10/25/17 12:00 97.0 87 18 156/71 100 Room Air 97.0 10/25/17 08:00 101 10/25/17 08:00 97.0 97 18 148/69 97 Room Air 97.0 10/25/17 04:00 97.9 74 20 134/67 100 Room Air 97.9 10/25/17 03:55 57 10/25/17 00:00 97.4 82 20 136/71 100 Room Air 97.4 10/24/17 23:41 58 10/24/17 20:02 85 10/24/17 19:00 98.2 88 12 128/66 99 Room Air 10/24/17 18:51 97.5 73 15 160/77 100 Room Air 97.5 Intake and Output 10/24/17 10/25/17 19:00 07:00 Intake Total 55 ml 1048.607 ml Balance 55 ml 1048.607 ml Intake Oral 0 ml IV Total 55 ml 1048.607 ml # Voids 4 Laboratory Tests Test 10/24/17 17:00 10/25/17 07:50 10/25/17 07:52 Lactic Acid Level 2.00 mmol/L (0.66-2.22) Total Creatine Kinase 584 U/L (26-308) H White Blood Count 4.6 K/UL (4.8-10.8) L Red Blood Count 4.58 M/UL (4.70-6.10) L Hemoglobin 15.2 G/DL (14.2-18.0) Hematocrit 42.2 % (42.0-52.0) Mean Corpuscular Volume 92 FL (80-99) Mean Corpuscular Hemoglobin 33.1 PG (27.0-31.0) H Mean Corpuscular Hemoglobin Concent 35.9 G/DL (32.0-36.0) Red Cell Distribution Width 12.4 % (11.6-14.8) Platelet Count 237 K/UL (150-450) Mean Platelet Volume 5.3 FL (6.5-10.1) L Neutrophils (%) (Auto) 69.7 % (45.0-75.0) Lymphocytes (%) (Auto) 18.5 % (20.0-45.0) L Monocytes (%) (Auto) 5.4 % (1.0-10.0) Eosinophils (%) (Auto) 4.8 % (0.0-3.0) H Basophils (%) (Auto) 1.6 % (0.0-2.0) Sodium Level 140 MMOL/L (136-145) Potassium Level 4.3 MMOL/L (3.5-5.1) Chloride Level 104 MMOL/L (98-107) Carbon Dioxide Level 24 MMOL/L (21-32) Anion Gap 12 mmol/L (5-15) Blood Urea Nitrogen 8 mg/dL (7-18) Creatinine 0.7 MG/DL (0.55-1.30) Estimat Glomerular Filtration Rate mL/min (>60) Glucose Level 118 MG/DL (74-106) H Uric Acid 3.3 MG/DL (2.6-7.2) Calcium Level 9.0 MG/DL (8.5-10.1) Troponin I 0.000 ng/mL (0.000-0.056) Pro-B-Type Natriuretic Peptide 192 pg/mL (0-125) H Triglycerides Level 46 MG/DL (30-150) Cholesterol Level 146 MG/DL (< 200) LDL Cholesterol 79 mg/dL (<100) HDL Cholesterol 61 MG/DL (40-60) H Cholesterol/HDL Ratio 2.4 (3.3-4.4) L Objective HEENT: Head and neck showed no JVD. LUNGS: Clear. CARDIOVASCULAR: Regular S1 and S2 with no gallop or murmur. ABDOMEN: Soft. EXTREMITIES: Bilateral pitting edema with the right much worse than the left as well as cellulitis and erythema of right leg. Morteza Warner MD October 25, 2017 16:17
[2017-10-25 20:00] VITALS: BP 151/71
[2017-10-25] MEDS: Tamsulosin 0.4mg cap ORAL SCH (20:40)
[2017-10-26] VITALS: BP 152/77
[2017-10-26 04:00] VITALS: BP 161/76
[2017-10-26] MEDS: Heparin 5000 units/ml inj SUBQ SCH ×3 (05:32→21:34)
[2017-10-26] MEDS: ceFAZolin sod 1 GM in D5W 55 ML IVPB SCH ×3 (05:33→21:32)
[2017-10-26 08:00] VITALS: BP 142/72
[2017-10-26 08:14] LABS: ANION GAP 10 mmol/L (5-15); BLOOD UREA NITROGEN 11 mg/dL (7-18); CALCIUM 9.2 MG/DL (8.5-10.1); CARBON DIOXIDE 24 MMOL/L (21-32); CHLORIDE 104 MMOL/L (98-107); CREATININE 0.9 MG/DL (0.55-1.30); POTASSIUM 4.7 MMOL/L (3.5-5.1); SODIUM 138 MMOL/L (136-145)
--- NOTE | 2017-10-26 08:22 | Nephrology Progress Note ---
Assessment/Plan Assessment/Plan 1. LE cellulitis- on Abx, appreciate ID assistance - ankle edema much improved. Cxs negative thus far. DVT US LE results pending - anticipate DC Friday on po antibiotics if Cxs negative 2. HTN- restart Lopressor as BP now elevated - appreciate cardiology input 3. DVT prophylaxsis- heparing sub q 5000 units q 8hrs Subjective Date patient seen: October 26, 2017 Time patient seen: 08:19 ROS Limited/Unobtainable: No Constitutional: Reports: other - LE ankles edema improved Allergies: Coded Allergies: No Known Allergies (Unverified , 09/10/11) All Systems: reviewed and negative except above Subjective Patient feeling much better. LE ankle swelling resolving. Patient feeling good to extent of DC home Friday or Friday Objective Last 24 Hour Vital Signs Date Time Temp Pulse Resp B/P (MAP) Pulse Ox O2 Delivery O2 Flow Rate FiO2 10/26/17 04:00 60 10/26/17 04:00 97.1 77 16 161/76 99 Room Air 97.1 10/26/17 00:00 70 10/26/17 00:00 96.4 79 20 152/77 93 Room Air 96.4 10/25/17 20:00 69 10/25/17 20:00 96.4 72 20 151/71 100 Room Air 96.4 10/25/17 16:00 73 10/25/17 16:00 97.2 105 18 145/93 98 Room Air 97.2 10/25/17 12:00 80 10/25/17 12:00 97.0 87 18 156/71 100 Room Air 97.0 Intake and Output 10/25/17 10/26/17 19:00 07:00 Intake Total 600 ml 240 ml Output Total 900 ml Balance -300 ml 240 ml Intake Oral 600 ml 240 ml Output Urine Total 900 ml # Bowel Movements 1 4 Laboratory Tests 10/26/17 06:58: Sodium Level [Pending], Potassium Level [Pending], Chloride Level [Pending], Carbon Dioxide Level [Pending], Blood Urea Nitrogen [Pending], Creatinine [ Pending], Estimat Glomerular Filtration Rate [Pending], Glucose Level [Pending] , Calcium Level [Pending], Vancomycin Level Trough 10.2 Height (Feet): 6 Height (Inches): 4.00 Weight (Pounds): 135 General Appearance: WD/WN, no apparent distress, alert EENT: PERRL/EOMI Neck: non-tender, normal alignment Cardiovascular: normal peripheral pulses, normal rate Respiratory/Chest: chest wall non-tender, lungs clear, normal breath sounds Abdomen: normal bowel sounds, non tender Edema: no edema noted Arm (L), no edema noted Arm (R); 1+ Leg (L), 1+ Leg (R), 1+ Pedal (L), 1+ Pedal (R) Adrián Wise M.D. October 26, 2017 08:22
[2017-10-26] MEDS: Vancomycin 750mg/NS 250ml IVPB SCH ×2 (09:02→19:50)
[2017-10-26] MEDS: Docusate 100mg cap ORAL SCH ×2 (09:06→21:00)
[2017-10-26] MEDS: Metoprolol Tartrate 12.5mg TAB ORAL SCH ×2 (09:06→21:31)
--- NOTE | 2017-10-26 11:24 | Cardiology Report ---
APPROVED REPORT EXAM: Two-dimensional and M-mode echocardiogram with Doppler and color Doppler. INDICATION Ejection Fraction M-Mode DIMENSIONS IVSd1.1 (0.7-1.1cm)Left Atrium (MM)3.0 (1.6-4.0cm) LVDd3.9 (3.5-5.6cm)Aortic Root2.7 (2.0-3.7cm) PWd1.0 (0.7-1.1cm)Aortic Cusp Exc.2.0 (1.5-2.0cm) LVDs2.5 (2.5-4.0cm) PWs1.4 cm Technically difficult study due to poor acoustic windows. Study quality precludes accurate assessment of regional wall motion. Normal left ventricular chamber size, systolic function and wall motion. Left ventricular ejection fraction estimated to be 55 %. Borderline left ventricular hypertrophy. Possible small pleural effusion. All other cardiac chamber sizes are within normal limits. Focal aortic valve sclerosis with adequate cusp excursion. Mildly thickened mitral valve leaflets with normal excursion. Mitral annulus and aortic root calcification. Pulmonic valve not visualized. Normal tricuspid valve structure. IVC dilated at 1.7 cm with physiological collapse. A color flow and spectral Doppler study was performed and revealed: No aortic insufficiency. Moderate mitral regurgitation. Mitral inflow velocities indicates possible pseudo normalization pattern implying significant left ventricular diastolic dysfunction (Grade II). Mild tricuspid regurgitation. Tricuspid systolic velocities suggests peak right ventricular systolic pressure of 31 mmHg.
--- NOTE | 2017-10-26 11:53 | Cardiology Report ---
APPROVED REPORT EKG Measurement Heart [id number] Normal sinus rhythm Right atrial enlargement Borderline ECG
[2017-10-26 12:00] VITALS: BP 135/65
--- NOTE | 2017-10-26 13:34 | Cardiac Electrophysiology PN ---
Assessment/Plan Assessment/Plan 1. Bilateral lower extremity edema, mostly on the right. Echo EF 55%.No DVT. On Lasix 40 iv daily 2. History of arthritis. 3. History of hypertension. On Lasix and Metoprolol 25 bid 4. History of cellulitis, on ceftriaxone. IMAN RN Subjective Subjective Feeling better. On Tele.No chest pain or SOB. Leg edema better Objective Last 24 Hour Vital Signs Date Time Temp Pulse Resp B/P (MAP) Pulse Ox O2 Delivery O2 Flow Rate FiO2 10/26/17 12:00 81 10/26/17 09:06 60 161/76 10/26/17 08:00 97.0 86 18 142/72 96 Room Air 97.0 10/26/17 08:00 60 10/26/17 04:00 60 10/26/17 04:00 97.1 77 16 161/76 99 Room Air 97.1 10/26/17 00:00 70 10/26/17 00:00 96.4 79 20 152/77 93 Room Air 96.4 10/25/17 20:00 69 10/25/17 20:00 96.4 72 20 151/71 100 Room Air 96.4 10/25/17 16:00 73 10/25/17 16:00 97.2 105 18 145/93 98 Room Air 97.2 Intake and Output 10/25/17 10/26/17 19:00 07:00 Intake Total 600 ml 240 ml Output Total 900 ml Balance -300 ml 240 ml Intake Oral 600 ml 240 ml Output Urine Total 900 ml # Bowel Movements 1 4 Laboratory Tests Test 10/26/17 06:58 Sodium Level 138 MMOL/L (136-145) Potassium Level 4.7 MMOL/L (3.5-5.1) Chloride Level 104 MMOL/L (98-107) Carbon Dioxide Level 24 MMOL/L (21-32) Anion Gap 10 mmol/L (5-15) Blood Urea Nitrogen 11 mg/dL (7-18) Creatinine 0.9 MG/DL (0.55-1.30) Estimat Glomerular Filtration Rate mL/min (>60) Glucose Level 101 MG/DL (74-106) Calcium Level 9.2 MG/DL (8.5-10.1) Vancomycin Level Trough 10.2 ug/mL (5.0-12.0) Microbiology Date/Time Source Procedure Growth Status 10/24/17 16:00 Blood Blood Culture - Preliminary NO GROWTH AFTER 24 HOURS Resulted 10/24/17 15:34 Blood Blood Culture - Preliminary NO GROWTH AFTER 24 HOURS Resulted Objective HEENT: Head and neck showed no JVD. LUNGS: Clear. CARDIOVASCULAR: Regular S1 and S2 with no gallop or murmur. ABDOMEN: Soft. EXTREMITIES: Bilateral pitting edema with the right much worse than the left as well as cellulitis and erythema of right leg. Morteza Warner MD October 26, 2017 13:34
[2017-10-26 16:00] VITALS: BP_SYST 142; BP_DIAS 72; BP_DIAS 74
--- NOTE | 2017-10-26 18:20 | Infectious Diseases Prog Note ---
Assessment/Plan Problems: (1) Cellulitis and abscess of lower extremity Assessment & Plan: continue vancomycin and cefazolin empirically , pending blood culture, keep legs elevated all the time when in bed (2) Leg swelling Assessment & Plan: rule out DVT, await venous doppler and continue antibiotics Subjective Constitutional: Reports: no symptoms HEENT: Reports: no symptoms Respiratory: Reports: no symptoms Breasts: Reports: no symptoms Cardiovascular: Reports: no symptoms Gastrointestinal/Abdominal: Reports: no symptoms Genitourinary: Reports: no symptoms Neurologic: Reports: no symptoms Psychiatric: Reports: no symptoms Skin: Reports: other - red on the feets Endocrine: Reports: no symptoms Hematologic: Reports: no symptoms Musculoskeletal: Reports: no symptoms Allergies: Coded Allergies: No Known Allergies (Unverified , 09/10/11) Objective Vital Signs Last 24 Hour Vital Signs Date Time Temp Pulse Resp B/P (MAP) Pulse Ox O2 Delivery O2 Flow Rate FiO2 10/26/17 16:00 97.0 86 18 142/72 96 Room Air 97.0 10/26/17 16:00 97.0 88 18 142/74 98 Room Air 97.0 10/26/17 16:00 89 10/26/17 12:00 81 10/26/17 12:00 97.2 83 18 135/65 99 Room Air 97.2 10/26/17 09:06 60 161/76 10/26/17 08:00 97.0 86 18 142/72 96 Room Air 97.0 10/26/17 08:00 60 10/26/17 04:00 60 10/26/17 04:00 97.1 77 16 161/76 99 Room Air 97.1 10/26/17 00:00 70 10/26/17 00:00 96.4 79 20 152/77 93 Room Air 96.4 10/25/17 20:00 69 10/25/17 20:00 96.4 72 20 151/71 100 Room Air 96.4 Height (Feet): 6 Height (Inches): 4.00 Weight (Pounds): 135 General Appearance: WD/WN, no acute distress HEENT: normocephalic, atraumatic, anicteric, mucous membranes moist, PERRL Respiratory/Chest: chest wall non-tender, lungs clear, normal breath sounds, no respiratory distress, no accessory muscle use Cardiovascular: normal peripheral pulses, normal rate, regular rhythm, no gallop/murmur, no JVD Abdomen: normal bowel sounds, soft, non tender, no organomegaly, non distended , no mass, no scars Genitourinary: normal external genitalia Extremities: no cyanosis, no clubbing, other - mild edema Skin: no rash, no lesions, no ulcers Microbiology Date/Time Source Procedure Growth Status 10/24/17 16:00 Blood Blood Culture - Preliminary NO GROWTH AFTER 24 HOURS Resulted 10/24/17 15:34 Blood Blood Culture - Preliminary NO GROWTH AFTER 24 HOURS Resulted Laboratory Tests Test 10/26/17 06:58 Sodium Level 138 MMOL/L (136-145) Potassium Level 4.7 MMOL/L (3.5-5.1) Chloride Level 104 MMOL/L (98-107) Carbon Dioxide Level 24 MMOL/L (21-32) Anion Gap 10 mmol/L (5-15) Blood Urea Nitrogen 11 mg/dL (7-18) Creatinine 0.9 MG/DL (0.55-1.30) Estimat Glomerular Filtration Rate mL/min (>60) Glucose Level 101 MG/DL (74-106) Calcium Level 9.2 MG/DL (8.5-10.1) Vancomycin Level Trough 10.2 ug/mL (5.0-12.0) Current Medications Medications (Trade) Dose Ordered Sig/Nicole Route PRN Reason Start Time Stop Time Status Last Admin Dose Admin Acetaminophen (Tylenol) 650 mg Q4H PRN ORAL Mild Pain (Pain Scale 1-3) 10/24/17 17:15 11/23/17 17:14 Cefazolin Sodium 1 gm/Dextrose 55 ml @ 110 mls/hr Q8HR IVPB 10/24/17 22:00 10/31/17 21:59 10/26/17 14:31 Dextrose (Dextrose 50%) 25 ml STAT PRN IV Hypoglycemia 10/24/17 17:15 11/23/17 17:14 Dextrose (Dextrose 50%) 50 ml STAT PRN IV Hypoglycemia 10/24/17 17:15 11/23/17 17:14 Diphenhydramine HCl (Benadryl) 25 mg Q6H PRN ORAL Itching/Pruritis 10/24/17 17:15 11/23/17 17:14 Docusate Sodium (Colace) 100 mg EVERY 12 HOURS ORAL 10/24/17 21:00 11/23/17 20:59 10/26/17 09:06 Famotidine (Pepcid) 40 mg DAILY ORAL 10/25/17 09:00 11/24/17 08:59 10/26/17 09:06 Furosemide (Lasix) 40 mg DAILY IV 10/26/17 09:00 11/25/17 08:59 10/26/17 09:06 Heparin Sodium (Porcine) (Heparin 5000 units/ml) 5,000 units EVERY 8 HOURS SUBQ 10/24/17 22:00 11/23/17 21:59 10/26/17 14:35 Metoprolol Tartrate (Lopressor) 12.5 mg Q12HR ORAL 10/26/17 09:00 11/25/17 08:59 10/26/17 09:06 Tamsulosin HCl (Flomax) 0.4 mg BEDTIME ORAL 10/24/17 21:00 11/23/17 20:59 10/25/17 20:40 Vancomycin HCl (Vanco rx to dose) 1 ea DAILY PRN MISC Per rx protocol 10/24/17 17:30 11/23/17 17:29 Vancomycin/Sodium Chloride 250 ml @ 166.667 mls/hr Q12HR@0800,2000 IVPB 10/25/17 08:00 10/30/17 07:59 10/26/17 09:02 Ayaz Mora M.D. October 26, 2017 18:20
[2017-10-26 20:00] VITALS: BP 137/61
[2017-10-26] MEDS: Tamsulosin 0.4mg cap ORAL SCH (21:31)
[2017-10-27] VITALS: BP 138/96
[2017-10-27 04:00] VITALS: BP 150/70
[2017-10-27] MEDS: Heparin 5000 units/ml inj SUBQ SCH (05:17)
[2017-10-27] MEDS: ceFAZolin sod 1 GM in D5W 55 ML IVPB SCH (05:17)
[2017-10-27 08:00] VITALS: BP 138/62
[2017-10-27] MEDS: Vancomycin 750mg/NS 250ml IVPB SCH (08:19)
[2017-10-27] MEDS: Metoprolol Tartrate 12.5mg TAB ORAL SCH (08:55)
[2017-10-27] MEDS: Docusate 100mg cap ORAL SCH (08:56)
--- NOTE | 2017-10-27 09:28 | Nephrology Progress Note ---
Assessment/Plan Assessment/Plan 1. LE cellulitis- on Abx, appreciate ID assistance - DVT US negative. Will DC patient today once ID makes final po Abx recc's 2. HTN- Lopressor - appreciate cardiology input. BP at goal 3. DVT prophylaxsis- heparing sub q 5000 units q 8hrs Subjective Date patient seen: October 27, 2017 Time patient seen: 09:25 ROS Limited/Unobtainable: No Allergies: Coded Allergies: No Known Allergies (Unverified , 09/10/11) All Systems: reviewed and negative except above Subjective Patient feeling much better. LE ankle swelling resolved. DC today planned Objective Last 24 Hour Vital Signs Date Time Temp Pulse Resp B/P (MAP) Pulse Ox O2 Delivery O2 Flow Rate FiO2 10/27/17 08:55 86 138/62 10/27/17 08:00 97.8 86 19 138/62 99 Room Air 97.8 10/27/17 04:00 97.0 78 21 150/70 100 Room Air 97.0 10/27/17 04:00 90 10/27/17 00:00 61 10/27/17 00:00 97.0 78 22 138/96 97 Room Air 97.0 10/26/17 21:31 84 137/61 10/26/17 20:00 97.0 84 19 137/61 96 Room Air 97.0 10/26/17 20:00 97 10/26/17 16:00 97.0 86 18 142/72 96 Room Air 97.0 10/26/17 16:00 97.0 88 18 142/74 98 Room Air 97.0 10/26/17 16:00 89 10/26/17 12:00 81 10/26/17 12:00 97.2 83 18 135/65 99 Room Air 97.2 Intake and Output 10/26/17 10/27/17 19:00 07:00 Intake Total 720 ml Output Total 200 ml 600 ml Balance 520 ml -600 ml Intake Oral 720 ml Output Urine Total 200 ml 600 ml # Voids 4 # Bowel Movements 2 Height (Feet): 6 Height (Inches): 4.00 Weight (Pounds): 134 General Appearance: WD/WN, no apparent distress, alert EENT: PERRL/EOMI, normal ENT inspection Neck: non-tender, normal alignment, supple Cardiovascular: normal peripheral pulses, normal rate Respiratory/Chest: chest wall non-tender, lungs clear, normal breath sounds Abdomen: normal bowel sounds, non tender Edema: trace edema Adrián Wise M.D. October 27, 2017 09:28
--- NOTE | 2017-10-27 09:58 | Diagnostic Imaging Report ---
APPROVED REPORT CPT Code: 95542 Present Symptoms Comments: BILATERAL LEGS PAIN. BILATERAL: Imaging reveals a patent deep venous system bilaterally. There is no evidence of thrombus within the femoral, popliteal or tibial segments. The greater saphenous veins are also within normal limits. Doppler indicates normal spontaneous flow within these segments.
[2017-10-27 10:00] LABS: BASOPHILS % (AUTO) 1.1 % (0.0-2.0); EOSINOPHILS % (AUTO) 5.3 % (0.0-3.0); HEMATOCRIT 38.6 % (42.0-52.0); HEMOGLOBIN 13.1 G/DL (14.2-18.0); LYMPHOCYTES % (AUTO) 22.5 % (20.0-45.0); MEAN CORPUSCULAR VOLUME 93 FL (80-99); MONOCYTES % (AUTO) 9.3 % (1.0-10.0); NEUTROPHILS % (AUTO) 61.9 % (45.0-75.0); PLATELET COUNT 303 K/UL (150-450); RED BLOOD COUNT 4.17 M/UL (4.70-6.10); RED CELL DISTRIBUTION WIDTH 12.6 % (11.6-14.8); WHITE BLOOD COUNT 3.6 K/UL (4.8-10.8)
[2017-10-27 10:27] LABS: ANION GAP 10 mmol/L (5-15); BLOOD UREA NITROGEN 16 mg/dL (7-18); CALCIUM 9.6 MG/DL (8.5-10.1); CARBON DIOXIDE 26 MMOL/L (21-32); CHLORIDE 103 MMOL/L (98-107); CREATININE 0.9 MG/DL (0.55-1.30); POTASSIUM 4.2 MMOL/L (3.5-5.1); SODIUM 138 MMOL/L (136-145)
[2017-10-27 12:00] VITALS: BP 132/66
--- NOTE | 2017-10-27 13:16 | Infectious Diseases Prog Note ---
Assessment/Plan Problems: (1) Cellulitis and abscess of lower extremity Assessment & Plan: improving on vancomycin and cefazolin empirically , blood culture is negative , will switch to oral keflex to finish his course , keep legs elevated all the time when in bed (2) Leg swelling Assessment & Plan: due to cellulitis, improved , venous doppler rule out DVT Subjective Constitutional: Reports: no symptoms HEENT: Reports: no symptoms Respiratory: Reports: no symptoms Breasts: Reports: no symptoms Cardiovascular: Reports: no symptoms Gastrointestinal/Abdominal: Reports: no symptoms Genitourinary: Reports: no symptoms Neurologic: Reports: no symptoms Psychiatric: Reports: no symptoms Skin: Reports: no symptoms Endocrine: Reports: no symptoms Hematologic: Reports: no symptoms Musculoskeletal: Reports: no symptoms Allergies: Coded Allergies: No Known Allergies (Unverified , 09/10/11) Objective Vital Signs Last 24 Hour Vital Signs Date Time Temp Pulse Resp B/P (MAP) Pulse Ox O2 Delivery O2 Flow Rate FiO2 10/27/17 12:00 98.0 80 20 132/66 98 Room Air 98.0 10/27/17 12:00 88 10/27/17 08:55 86 138/62 10/27/17 08:00 76 10/27/17 08:00 97.8 86 19 138/62 99 Room Air 97.8 10/27/17 04:00 97.0 78 21 150/70 100 Room Air 97.0 10/27/17 04:00 90 10/27/17 00:00 61 10/27/17 00:00 97.0 78 22 138/96 97 Room Air 97.0 10/26/17 21:31 84 137/61 10/26/17 20:00 97.0 84 19 137/61 96 Room Air 97.0 10/26/17 20:00 97 10/26/17 16:00 97.0 86 18 142/72 96 Room Air 97.0 10/26/17 16:00 97.0 88 18 142/74 98 Room Air 97.0 10/26/17 16:00 89 Height (Feet): 6 Height (Inches): 4.00 Weight (Pounds): 134 General Appearance: WD/WN, no acute distress HEENT: normocephalic, atraumatic, anicteric, mucous membranes moist, PERRL Respiratory/Chest: chest wall non-tender, lungs clear, normal breath sounds, no respiratory distress, no accessory muscle use Cardiovascular: normal peripheral pulses, normal rate, regular rhythm, regularly irregular, no gallop/murmur, no JVD Abdomen: normal bowel sounds, soft, non tender, no organomegaly, non distended , no mass, no scars Genitourinary: normal external genitalia Extremities: no cyanosis, no clubbing Skin: no rash, no lesions, no ulcers Neurologic/Psychiatric: alert, oriented x 3 Microbiology Date/Time Source Procedure Growth Status 10/24/17 16:00 Blood Blood Culture - Preliminary NO GROWTH AFTER 48 HOURS Resulted 10/24/17 15:34 Blood Blood Culture - Preliminary NO GROWTH AFTER 48 HOURS Resulted Laboratory Tests Test 10/27/17 09:00 White Blood Count 3.6 K/UL (4.8-10.8) L Red Blood Count 4.17 M/UL (4.70-6.10) L Hemoglobin 13.1 G/DL (14.2-18.0) L Hematocrit 38.6 % (42.0-52.0) L Mean Corpuscular Volume 93 FL (80-99) Mean Corpuscular Hemoglobin 31.5 PG (27.0-31.0) H Mean Corpuscular Hemoglobin Concent 34.0 G/DL (32.0-36.0) Red Cell Distribution Width 12.6 % (11.6-14.8) Platelet Count 303 K/UL (150-450) Mean Platelet Volume 5.9 FL (6.5-10.1) L Neutrophils (%) (Auto) 61.9 % (45.0-75.0) Lymphocytes (%) (Auto) 22.5 % (20.0-45.0) Monocytes (%) (Auto) 9.3 % (1.0-10.0) Eosinophils (%) (Auto) 5.3 % (0.0-3.0) H Basophils (%) (Auto) 1.1 % (0.0-2.0) Sodium Level 138 MMOL/L (136-145) Potassium Level 4.2 MMOL/L (3.5-5.1) Chloride Level 103 MMOL/L (98-107) Carbon Dioxide Level 26 MMOL/L (21-32) Anion Gap 10 mmol/L (5-15) Blood Urea Nitrogen 16 mg/dL (7-18) Creatinine 0.9 MG/DL (0.55-1.30) Estimat Glomerular Filtration Rate mL/min (>60) Glucose Level 56 MG/DL (74-106) L Calcium Level 9.6 MG/DL (8.5-10.1) Current Medications Medications (Trade) Dose Ordered Sig/Nicole Route PRN Reason Start Time Stop Time Status Last Admin Dose Admin Acetaminophen (Tylenol) 650 mg Q4H PRN ORAL Mild Pain (Pain Scale 1-3) 10/24/17 17:15 11/23/17 17:14 Cefazolin Sodium 1 gm/Dextrose 55 ml @ 110 mls/hr Q8HR IVPB 10/24/17 22:00 10/31/17 21:59 10/27/17 05:17 Dextrose (Dextrose 50%) 25 ml STAT PRN IV Hypoglycemia 10/24/17 17:15 11/23/17 17:14 Dextrose (Dextrose 50%) 50 ml STAT PRN IV Hypoglycemia 10/24/17 17:15 11/23/17 17:14 Diphenhydramine HCl (Benadryl) 25 mg Q6H PRN ORAL Itching/Pruritis 10/24/17 17:15 11/23/17 17:14 Docusate Sodium (Colace) 100 mg EVERY 12 HOURS ORAL 10/24/17 21:00 11/23/17 20:59 10/27/17 08:56 Famotidine (Pepcid) 40 mg DAILY ORAL 10/25/17 09:00 11/24/17 08:59 10/27/17 08:56 Furosemide (Lasix) 40 mg DAILY IV 10/26/17 09:00 11/25/17 08:59 10/27/17 08:56 Heparin Sodium (Porcine) (Heparin 5000 units/ml) 5,000 units EVERY 8 HOURS SUBQ 10/24/17 22:00 11/23/17 21:59 10/26/17 21:34 Metoprolol Tartrate (Lopressor) 12.5 mg Q12HR ORAL 10/26/17 09:00 11/25/17 08:59 10/27/17 08:55 Tamsulosin HCl (Flomax) 0.4 mg BEDTIME ORAL 10/24/17 21:00 11/23/17 20:59 10/26/17 21:31 Vancomycin HCl (Vanco rx to dose) 1 ea DAILY PRN MISC Per rx protocol 10/24/17 17:30 11/23/17 17:29 Vancomycin/Sodium Chloride 250 ml @ 166.667 mls/hr Q12HR@0800,2000 IVPB 10/25/17 08:00 10/30/17 07:59 10/27/17 08:19 Ayaz Mora M.D. October 27, 2017 13:16
--- NOTE | 2017-10-27 21:00 | Discharge Summary ---
DATE OF ADMISSION: 10/24/2017 DATE OF DISCHARGE: 10/27/2017 REASON FOR ADMISSION: 1. Lower extremity edema. 2. Lower extremity cellulitis. HOSPITAL COURSE: The patient is a pleasant 72-year-old male, who was admitted for further evaluation and care of new onset lower extremity ankle edema and redness. The patient was complaining of approximately one week of worsening ankle edema, redness, and swelling. During his hospitalization, the patient did very well. He was initiated on IV antibiotics. Within 24 hours, his ankle swelling vastly improved. Infectious Disease, Dr. Mora was consulted and placed the patient on antibiotics. Blood cultures were negative. Ultrasound of his lower extremities for any DVT was negative. The patient was stable for discharge on p.o. medication. DISCHARGE DISPOSITION: Stable. DISCHARGE MEDICATIONS: The patient to continue same home medications in addition to the followin. Lopressor 12.5 mg twice a day. 2. Lasix 20 mg daily. 3. Antibiotics per Infectious Disease management. The patient discharged on 10/27/2017 in stable condition. DISCHARGE DIAGNOSIS 1. LE Cellulitis 2. Edema 3. HTN FOLLOWUP: 1. The patient to follow up with Infectious Disease in 1 to 2 weeks per their discretion. 2. The patient to follow with primary care physician. Adrián Wise MD DR: ELLEN JOB#: [id number] CC: ANDREW
--- NOTE | 2017-10-28 15:42 | Consultation ---
History of Present Illness General Date patient seen: October 26, 2017 Chief Complaint: General Complaint Present Illness HPI 72-year-old gentleman, who says he has been doing relatively well at home and only taking vitamins. He denied taking any antihypertensive medications or diabetic medications. the pt has hx of depression and stated a SA long time ago. the pt has cognitive impairment Allergies: Coded Allergies: No Known Allergies (Unverified , 09/10/11) Medication History Scheduled Docusate Sodium* (Colace*), 100 MG PO BID, (Reported) Finasteride* (Proscar*), 5 MG PO QHS, (Reported) Ibuprofen* (Motrin*), 800 MG ORAL THREE TIMES A DAY Metoprolol Tartrate* (Lopressor*), 50 MG PO DAILY, (Reported) Pantoprazole* (Protonix*), 40 MG PO DAILY, (Reported) Tamsulosin HCl (Flomax), 0.4 MG PO BID, (Reported) Trimethoprim/Sulfamethoxazole (Bactrim Ds Tablet), 1 EA PO BID, (Reported) Scheduled PRN Acetaminophen With Codeine (T#3) (Tylenol #3 Tab*), 1 TAB ORAL Q4H PRN for For Pain Patient History Limited by: medical condition History Provided By: Patient, Medical Record, PMD Healthcare decision maker N Resuscitation status Full Code Advanced Directive on File No Past Medical/Surgical History Past Medical/Surgical History: (1) Clavicle fracture (2) cellulilitis of feet (3) Cellulitis and abscess of lower extremity (4) Leg swelling Review of Systems Psychiatric: Reports: prior hx, anxiety, depressed feelings, emotional problems Physical Exam General Appearance: no apparent distress, alert, thin Neurologic: oriented x 3, responsive, depressed affect Intake and Output 10/27/17 10/28/17 19:00 07:00 Intake Total 250.0000 ml Balance 250.0000 ml IV Total 250.0000 ml Height (Feet): 6 Height (Inches): 4.00 Weight (Pounds): 134 Assessment/Plan Status: stable Assessment/Plan mdd recommend remeron or ssris provided ariella/Lennox Daniels M.D. October 28, 2017 15:42
--- NOTE | 2017-10-28 15:45 | General Progress Note ---
Assessment/Plan Status: stable, progressing Assessment/Plan mdd recommend remeron or ssris provided ro/st Subjective Date patient seen: October 27, 2017 Neurologic/Psychiatric: Reports: anxiety, depressed, emotional problems Allergies: Coded Allergies: No Known Allergies (Unverified , 09/10/11) Objective Intake and Output 10/27/17 10/28/17 19:00 07:00 Intake Total 250.0000 ml Balance 250.0000 ml IV Total 250.0000 ml Height (Feet): 6 Height (Inches): 4.00 Weight (Pounds): 134 General Appearance: WD/WN, no apparent distress, alert Neurologic: oriented x 3, responsive, depressed affect Lennox Felipe M.D. October 28, 2017 15:45
== END 2017-10-27 13:34 | disposition home or self-care (01) | DRG 603 ==
LOC: EMR 14:20 → 4E 14:45 → EDBEDREQ 14:52 → 4E 16:32 → EDBEDREQSVC 17:36 → EDBEDREQ 17:36 → 2E 18:33
DX: L03.116 Cellulitis of left lower limb (principal); L03.115 Cellulitis of right lower limb; I10 Essential (primary) hypertension; M06.9 Rheumatoid arthritis, unspecified; Z87.891 Personal history of nicotine dependence; K21.9 Gastro-esophageal reflux disease without esophagitis; L02.416 Cutaneous abscess of left lower limb; L02.415 Cutaneous abscess of right lower limb; F32.9 Major depressive disorder, single episode, unspecified
CPT/HCPCS: 36415; 71045; 80048; 80053; 80061; 80202; 82550; 82553; 83605; 83880; 84484; 84550; 85025; 85651; 87040; 93005; 93306; 93970; 99285